=== PATIENT | female | born 1950 | race Caucasian/White ===

== ENCOUNTER 2016-08-04 14:54 | Emergency (ER) ==
[2016-08-04] MEDS ORDERED: TENIVAC IM ONE (15:02)
[2016-08-04] MEDS ORDERED: DECADRON 4 MG/ML SDV IM STA (15:02)
[2016-08-04 15:08] VITALS: BP 131/83; TEMP 96; BMI 29.9
--- NOTE | 2016-08-04 15:47 | ED.PDOC ---
General ED Provider: Dr. MALCOLM DUDLEY Stated Complaint: insect bite Time Seen by Physician: 15:00 Mode of Arrival: Walk-In Information Source: Patient Exam Limitations: No limitations Primary Care Provider: BROOKE ROBBINS Nursing and Triage Documentation Reviewed and Agree: Yes Skin Complaint Exam - Skin/Soft Tissue Complaint/Exam Symptoms Are: Still present Timing: Constant Initial Severity: Mild Current Severity: Mild Character: Reports: Swelling Alleviating: Reports: None Associated Signs and Symptoms: Denies: Fever, Chills, Itching, Drainage, Bruising, Tenderness, Red streaks, Joint swelling Related History: Reports: Similar episode Related Surgical History: Reports: None Recent Exposure to Others w/Similar Symptoms: No Review of Systems - Review Of Systems Constitutional: Reports: No symptoms Eyes: Reports: No symptoms Ears, Nose, Mouth, Throat: Reports: No symptoms Respiratory: Reports: No symptoms Cardiac: Reports: No symptoms GI: Reports: No symptoms : Reports: No symptoms Musculoskeletal: Reports: No symptoms Skin: Reports: Rash (see photos) Neurological: Reports: No symptoms Endocrine: Reports: No symptoms Hematologic/Lymphatic: Reports: No symptoms All Other Systems: Reviewed and Negative Past Medical History - Past Medical History Previously Healthy: No Endocrine: Reports: None Cardiovascular: Reports: None Respiratory: Reports: None Hematological: Reports: None Gastrointestinal: Reports: None Genitourinary: Reports: None Neuro/Psych: Reports: None Musculoskeletal: Reports: None Cancer: Reports: None Last Menstrual Period: N/A - Surgical History General Surgical History: Reports: Orthopedic - Family History Family History: Reports: None - Social History Smoking Status: Former smoker Hx Substance Use: No Alcohol Screening: None - Immunizations Tetanus Shot up to Date: No Physical Exam - Physical Exam Appearance: Well-appearing, No pain distress, Well-nourished Eyes: HALINA, EOMI, Conjunctiva clear ENT: Ears normal, Nose normal, Oropharynx normal Respiratory: Airway patent, Breath sounds clear, Breath sounds equal, Respirations nonlabored Cardiovascular: RRR, Pulses normal, No rub, No murmur GI/: Soft, Nontender, No masses, Bowel sounds normal, No Organomegaly Musculoskeletal: Normal strength, ROM intact, No edema, No calf tenderness Skin: Warm, Dry (8x14 rash left wrist) Neurological: Sensation intact, Motor intact, Reflexes intact, Cranial nerves intact, Alert, Oriented Psychiatric: Affect appropriate, Mood appropriate Critical Care Note - Critical Care Note Total Time (mins): 0 Course - Course Orders, Labs, Meds: Orders Category Date Time Status Dexamethasone 4 mg/ml Inj [Decadron 4 mg/ml Sdv] MEDS 08/04/16 15:02 Stat 4 mg IM ONCE STA Tetanus and Diphtheria Tox/Pf [Tenivac] MEDS 08/04/16 15:02 Once 0.5 ml IM .ONCE ONE Medications Discontinued Medications Generic Name Dose Route Start Last Admin Trade Name Steven PRN Reason Stop Dose Admin Dexamethasone Sodium Phosphate 4 mg 08/04/16 15:02 08/04/16 15:20 Decadron 4 Mg/Ml Sdv IM 08/04/16 15:03 4 mg ONCE STA Administration Tetanus/Diphtheria Toxoids Adsorbed 0.5 ml 08/04/16 15:02 08/04/16 15:22 Tenivac IM 08/04/16 15:03 0.5 ml .ONCE ONE Administration Vital Signs: Temp Pulse Resp BP Pulse Ox 08/04/16 14:54 96 F L 89 20 131/83 95 Departure - Departure Time of Disposition: 15:46 Disposition: HOME SELF-CARE Discharge Problem: Rash Insect bite Qualifiers: Encounter type: initial encounter Qualifier Code: (W57.XXXA) Bitten or stung by nonvenomous insect and other nonvenomous arthropods, initial encounter Instructions: Insect Bite or Sting (ED), Cellulitis (ED) Condition: Good Pt referred to PMD for follow-up: No Allergies/Adverse Reactions: Allergies No Known Allergies Allergy (Verified 08/04/16 15:05) Home Medications: Ambulatory Orders Calcium Citrate/Vitamin D3 [Citracal-Vit D 200 mg-250 Tab] 1 tab PO BID Paroxetine HCl [Paxil] 20 mg PO DAILY 02/03/14 Anastrozole 1 mg PO DAILY 06/09/15 Cholecalciferol (Vitamin D3) [Vitamin D-3] 2,000 unit PO DAILY 06/09/15 Fluticasone/Salmeterol [Advair 100-50 Diskus] 1 puff IH BID 06/09/15 Aspirin [Aspir-Low] 81 mg PO DAILY 08/04/16 Tiotropium Turner [Spiriva] 18 mcg IH DAILYWM 08/04/16
== END 2016-08-04 15:55 | disposition home or self-care (01) ==
LOC: ED 14:54
DX: R21 Rash and other nonspecific skin eruption (principal); S60.862A Insect bite (nonvenomous) of left wrist, initial encounter; W57.XXXA Bitten or stung by nonvenomous insect and other nonvenomous arthropods, initial encounter
CPT/HCPCS: 90471; 96372; 99282

== ENCOUNTER 2016-08-06 11:43 | Emergency (ER) ==
[2016-08-06 11:52] VITALS: BP 121/86; TEMP 97; BMI 29.9
[2016-08-06] MEDS ORDERED: VANCOMYCIN 1 GM in SODIUM CHLORIDE 250 ML IV STA (12:21)
[2016-08-06 12:44] LABS: BASOPHILS # (AUTO) 0.1 K/uL (0-0.2); BASOPHILS % (AUTO) 0.8 % (0.0-3.0); EOSINOPHILS # (AUTO) 0.6 K/ul (0.0-0.7); EOSINOPHILS % (AUTO) 8.8 % (0.0-7.0); HEMATOCRIT 40.1 % (37.0-47.0); HEMOGLOBIN 13.2 g/dl (12.0-16.0); IMMATURE GRANULOCYTE % (AUTO) 0.3 % (0.0-5.0); LYMPHOCYTES # (AUTO) 2.3 K/uL (0.60-3.4); LYMPHOCYTES % (AUTO) 36.3 (10.0-50.0); MEAN CORPUSCULAR HEMOGLOBIN 27.1 pg (27.0-31.0); MEAN CORPUSCULAR HGB CONC 32.9 (31.8-35.4); MEAN CORPUSCULAR VOLUME 82.3 fl (81.0-99.0); MONOCYTES # (AUTO) 0.6 K/uL (0.4-2.0); MONOCYTES % (AUTO) 10.2 (0-10); NEUTROPHILS # (AUTO) 2.7 K/ul (2.0-6.9); NEUTROPHILS % (AUTO) 43.6; PLATELET COUNT 280 10^3/uL (140-440); RED BLOOD COUNT 4.87 10^6/ul (4.20-5.40); WHITE BLOOD COUNT 6.28 K/ul (4.6-10.2)
[2016-08-06 13:04] LABS: ALBUMIN 3.9 g/dL (3.4-5.0); ALBUMIN/GLOBULIN RATIO 1.18; BILIRUBIN,TOTAL 0.26 mg/dL (0.00-1.20); BUN/CREATININE RATIO 15.15; CALCIUM 9.4 mg/dL (8.2-10.2); CREATININE 0.99 mg/dL (0.60-1.30); TOTAL PROTEIN 7.2 g/dL (5.8-8.1)
[2016-08-06 13:17] LABS: ERYTHROCYTE SEDIMENTATION RATE 20 mm/hr (0-20); ESR INTERNAL QC INTERNAL QC VALID
--- NOTE | 2016-08-06 13:57 | ED.PDOC ---
General ED Provider: Dr. LUZ ELENA HOUSE Chief Complaint: Wound Check Stated Complaint: patient is a 66 year all female who comes to the ER with left forearm erythema for 3 days. has been on Amoxil but has not improved. Time Seen by Physician: 13:55 Mode of Arrival: Walk-In Information Source: Patient Exam Limitations: No limitations Primary Care Provider: BROOKE ROBBINS Nursing and Triage Documentation Reviewed and Agree: Yes Review of Systems - Review Of Systems Constitutional: Reports: No symptoms Eyes: Reports: No symptoms Ears, Nose, Mouth, Throat: Reports: No symptoms Respiratory: Reports: No symptoms Cardiac: Reports: No symptoms GI: Reports: No symptoms : Reports: No symptoms Musculoskeletal: Reports: No symptoms Skin: Reports: Rash Neurological: Reports: No symptoms Endocrine: Reports: No symptoms Hematologic/Lymphatic: Reports: No symptoms All Other Systems: Reviewed and Negative Past Medical History - Past Medical History Previously Healthy: No Endocrine: Reports: None Cardiovascular: Reports: None Respiratory: Reports: Asthma Hematological: Reports: None Gastrointestinal: Reports: None Genitourinary: Reports: None Neuro/Psych: Reports: Depression Musculoskeletal: Reports: None Cancer: Reports: Breast Last Menstrual Period: unknown - Surgical History General Surgical History: Reports: Orthopedic (right knee replacement ), Other ( breast lumpectomy ) - Family History Family History: Reports: None - Social History Smoking Status: Former smoker Hx Substance Use: No Alcohol Screening: None - Immunizations Tetanus Shot up to Date: Yes (08/04/16) Physical Exam - Physical Exam Appearance: Ill-appearing, Obese Ill-appearing: Mild Pain Distress: Mild Eyes: HALINA, EOMI, Conjunctiva clear ENT: Oropharynx normal Neck: Supple Respiratory: Airway patent, Breath sounds clear, Breath sounds equal, Respirations nonlabored Cardiovascular: RRR, Pulses normal, No rub, No murmur GI/: Soft Musculoskeletal: Normal strength, ROM intact, No edema, No calf tenderness Skin: Warm, Dry Neurological: Motor intact, Alert, Oriented Psychiatric: Affect appropriate, Mood appropriate Critical Care Note - Critical Care Note Total Time (mins): 0 Comments: Patient declines to be admitted. She prefers to get daily injection of Antibiotics IM until she can get to her physicain Course - Course Hematology/Chemistry: 08/06/16 12:30 08/06/16 12:30 Orders, Labs, Meds: Lab Review 08/06/16 12:30 WBC 6.28 RBC 4.87 Hgb 13.2 Hct 40.1 MCV 82.3 MCH 27.1 MCHC 32.9 RDW Coeff of Dion 14.0 Plt Count 280 Immature Gran % (Auto) 0.3 Neut % (Auto) 43.6 Lymph % (Auto) 36.3 Wilcox % (Auto) 10.2 H Eos % (Auto) 8.8 H Baso % (Auto) 0.8 Immature Gran # (Auto) 0.0 Neut # 2.7 Lymph # 2.3 Wilcox # 0.6 Eos # 0.6 Baso # 0.1 ESR 20 Sodium 140 Potassium 4.0 Chloride 105 Carbon Dioxide 24 Anion Gap 15.0 BUN 15 Creatinine 0.99 Estimated GFR (MDRD) 56.00 BUN/Creatinine Ratio 15.15 Glucose 81 L Lactic Acid 8.7 Calcium 9.4 Total Bilirubin 0.26 AST 18 ALT 19 Alkaline Phosphatase 74 Total Protein 7.2 Albumin 3.9 Globulin 3.3 Albumin/Globulin Ratio 1.18 Procalcitonin < 0.05 Orders Category Date Time Status ED IV/MEDIPORT/POWERPORT .ONCE EMERGENCY 08/06/16 12:21 Active BLOOD CULTURE Stat LAB 08/06/16 12:30 Received CBC W/ AUTO DIFF Stat LAB 08/06/16 12:30 Completed COMPREHENSIVE METABOLIC PANEL Stat LAB 08/06/16 12:30 Completed ESR Stat LAB 08/06/16 12:30 Completed LACTIC ACID Stat LAB 08/06/16 12:30 Completed PROCALCITONIN Stat LAB 08/06/16 12:30 Completed 0.9 % Sodium Chloride [Saline Flush] MEDS 08/06/16 12:21 Discontinued 1 syr IVF PRN PRN Vancomycin HCl [Vancomycin] 1 gm MEDS 08/06/16 12:21 Discontinued 0.9 % Sodium Chloride [Sodium Chloride] 250 ml IV ONCE Medications Discontinued Medications Generic Name Dose Route Start Last Admin Trade Name Freq PRN Reason Stop Dose Admin Vancomycin HCl 1 gm/ Sodium 250 mls @ 250 mls/hr 08/06/16 12:21 08/06/16 13: 07 Chloride IV 08/06/16 13:20 250 mls/hr ONCE STA Administration Sodium Chloride 1 syr 08/06/16 12:21 08/06/16 14:09 Saline Flush IVF 1 syr PRN PRN Administration To flush IV Vital Signs: Temp Pulse Resp BP Pulse Ox 08/06/16 11:44 97.0 F L 77 20 121/86 96 Departure - Departure Time of Disposition: 13:56 Disposition: HOME SELF-CARE Discharge Problem: Rash Cellulitis Qualifiers: Site of cellulitis: extremity Site of cellulitis of extremity: upper extremity Laterality: left Qualifier Code: (L03.114) Cellulitis of left upper limb Instructions: Cellulitis (ED) Condition: Fair Pt referred to PMD for follow-up: Yes Additional Instructions: Take medications as prescribed come for IM antibiotics until seen by your PCP Prescriptions: Sulfamethoxazole/Trimethoprim [Bactrim Ds Tablet] 1 each PO BID #20 tablet Allergies/Adverse Reactions: Allergies No Known Allergies Allergy (Verified 08/06/16 11:52) Home Medications: Ambulatory Orders Calcium Citrate/Vitamin D3 [Citracal-Vit D 200 mg-250 Tab] 1 tab PO BID Paroxetine HCl [Paxil] 20 mg PO DAILY 02/03/14 Anastrozole 1 mg PO DAILY 06/09/15 Cholecalciferol (Vitamin D3) [Vitamin D-3] 2,000 unit PO DAILY 06/09/15 Fluticasone/Salmeterol [Advair 100-50 Diskus] 1 puff IH BID 06/09/15 Amoxicillin 500 mg PO Q8HR #21 tablet 08/04/16 Aspirin [Aspir-Low] 81 mg PO DAILY 08/04/16 Tiotropium Beatty [Spiriva] 18 mcg IH DAILYWM 08/04/16 Sulfamethoxazole/Trimethoprim [Bactrim Ds Tablet] 1 each PO BID #20 tablet 08/06 Disposition Discussed With: Patient, Family
== END 2016-08-06 14:20 | disposition home or self-care (01) ==
LOC: ED 11:43
DX: L03.114 Cellulitis of left upper limb (principal); R21 Rash and other nonspecific skin eruption; Z79.899 Other long term (current) drug therapy
CPT/HCPCS: 36415; 80053; 83605; 84145; 85025; 85651; 87040; 96365; 99283

== ENCOUNTER 2016-08-07 14:19 | Outpatient (CLI) ==
[2016-08-06 11:52] VITALS: BMI 29.9
[2016-08-07 14:37] VITALS: BP 126/82; TEMP 98
[2016-08-07] MEDS ORDERED: ROCEPHIN IM STA (14:39)
[2016-08-07] MEDS ORDERED: LIDOCAINE 1 % AMP 5 ML (SUTURES) IM STA (14:39)
[2016-08-07] MEDS ORDERED: ROCEPHIN ONE (14:42)
[2016-08-07] MEDS ORDERED: LIDOCAINE 1 % AMP 5 ML (SUTURES) ONE (14:42)
== END 2016-08-07 14:20 | disposition home or self-care (01) ==
LOC: OPMED 14:19
PROVIDERS: ATTEND Family Medicine
DX: L03.90 Cellulitis, unspecified (principal)
CPT/HCPCS: 96372

== ENCOUNTER 2016-08-08 14:15 | Outpatient (CLI) ==
[2016-08-08 14:28] VITALS: BP 124/81; TEMP 97.4
[2016-08-08] MEDS ORDERED: LIDOCAINE 1 % AMP 5 ML (SUTURES) IM STA (14:28)
[2016-08-08] MEDS ORDERED: ROCEPHIN IM STA (14:28)
== END 2016-08-08 14:16 | disposition home or self-care (01) ==
LOC: OUTPT 14:15
PROVIDERS: ATTEND Family Medicine
DX: L03.90 Cellulitis, unspecified (principal)
CPT/HCPCS: 96372